=== PATIENT | male | born 1975 | race Two or more races ===

== ENCOUNTER 2022-08-06 15:31 | Emergency (ER) | payer SELFPAY ==
[~2022-08-06] VITALS: Ht 162.6 cm; Wt 85.4 kg
[2022-08-06 15:48] VITALS: BP 136/90
[2022-08-06] MEDS ORDERED: KETOROLAC TROMETH 60MG/2ML VIAL IM ONE (16:15)
[2022-08-06] MEDS ORDERED: IBUP800T26 PO (18:08)
== END 2022-08-06 19:03 | disposition home or self-care (01) ==
LOC: ER 15:31
DX: S20.213A Contusion of bilateral front wall of thorax, initial encounter (principal); S09.90XA Unspecified injury of head, initial encounter; Z59.00 Homelessness unspecified; Y08.89XA Assault by other specified means, initial encounter; Y93.89 Activity, other specified; Y99.8 Other external cause status; Y92.89 Other specified places as the place of occurrence of the external cause
CPT/HCPCS: 71111; 96372; 99283; J1885

== ENCOUNTER 2023-10-23 18:02 | Emergency (ER) | payer MEDICAID, OTHER ==
[~2023-10-23] VITALS: Ht 162.6 cm; Wt 79.8 kg
[~2023-10-23 18:02] MED LIST: IBUP-1455 PO
[2023-10-23 18:25] VITALS: BP 133/72; PULSE 98; RESP 16; O2SAT 97
[2023-10-23 19:24] LABS: Urine Bacteria FEW /hpf (None Seen); Urine Blood Negative /uL (Negative); Urine Clarity Clear (Clear); Urine Color Yellow (Yellow); Urine Protein, UAD TRACE (Negative); Urine Sperm PRESENT /hpf (None Seen); Urine Urobilinogen Normal (Negative); Urine WBC 3 /hpf (0 - 3)
== END 2023-10-23 21:43 | disposition left against medical advice (07) ==
LOC: ER 18:02
DX: M54.59 Other low back pain (principal); R30.9 Painful micturition, unspecified; Z53.21 Procedure and treatment not carried out due to patient leaving prior to being seen by health care provider
CPT/HCPCS: 81001